=== PATIENT | female | born 1975 | race African-American/Black ===

== ENCOUNTER 2017-01-14 15:04 | Emergency (ER) ==
[2017-01-14 15:18] VITALS: BP 101/61
[2017-01-14] MEDS ORDERED: NORFLEX IM ONE (16:48)
[2017-01-14] MEDS ORDERED: DECADRON IM ONE (16:48)
--- NOTE | 2017-01-14 16:48 | PROVIDER DOCUMENTATION ---
HPI-Musculoskeletal Pain/Inj - GENERAL Chief Complaint: Back Pain Stated Complaint: BACK PAIN Time Seen by Provider: 01/14/17 16:43 Source: patient - HX OF PRESENT ILLNESS-MUSKULOSKELTAL Nature of Presenting Problem: 41 y/o AAF c/o right lower back pain, that radiates down to the right leg. States it "locks up" and she cannot move her leg. Left side has been hurting as well. Hx of renal stones. No injury today. pain has been going on for 24 hours. Tried heating pads, massage therapy, without relief. Tried taking Robaxin and Tinazidine without relief. States she has been on muscle relaxers for her fibromyalgia. Denies bowel or bladder incontinence, saddle anesthesias or paresthesias. Review of Systems - Adult - REVIEW OF SYSTEMS - ADULT Constitutional: reports: no symptoms reported. denies: chills, fever, fatique Eyes: reports: no symptoms reported. denies: decreased vision, blurred vision, double vision, eye pain Ears, Nose, Mouth & Throat: reports: no symptoms reported. denies: ear pain, nose pain, throat pain Cardiovascular: reports: no symptoms reported. denies: chest pain, palpitations Respiratory: reports: no symptoms reported. denies: cough, shortness of breath , wheezing Gastrointestinal: reports: no symptoms reported. denies: abdominal pain, diarrhea, nausea, vomiting Genitourinary: reports: no symptoms reported. denies: dysuria, discharge, frequency Musculoskeletal: reports: back pain, muscle aches. denies: bone pain, joint pain Integumentary: reports: no symptoms reported. denies: rash Neurological: reports: no symptoms reported. denies: headache/migraines Psychiatric: reports: no symptoms reported Endocrine: reports: no symptoms reported Hematologic/Lymphatic: reports: no symptoms reported Allergic/Immunologic: reports: no symptoms reported All Other Systems: Reviewed and Negative Past History - Adult - PAST MEDICAL HISTORY-ADULT Review of Records: reports: Old Records Reviewed, Nursing Assessment Review, Medications Reviewed Major Childhood Illnesses: reports: denies history Cardiovascular: reports: A-Fib, HTN Respiratory: reports: asthma Gastrointestinal: reports: GERD Obstetrical/Gynecological: reports: denies history Genitourinary: reports: kidney stones Musculoskeletal: reports: chronic pain, fibromyalgia Neurological: reports: denies history Endocrine/Immune: reports: denies history Other Conditions: reports: other (fibroid, afib, fibromyalgia, ovarain cyst's) - PRIOR SURGERIES/PROCEDURES Surgical/Procedure History: reports: hysterectomy, orthopedic (extremity) ( scope of the left knee), other (ovarian cyst removal, left) - IMMUNIZATION STATUS Childhood Immunizations: See Nurse Assessment Flu Vaccine: NUTD - FAMILY HISTORY Family History: reviewed, not pertinent - SOCIAL HISTORY Smoking: less than 1 pack/day Provider spent 3-5 mins advising pt. on dangers of tobacco.: Discussed manners to quit use, and f/u contacts for add'l counseling. Substance Use: none/never Alcohol Use Frequency: never Living Situation: family Physical Exam-Injury Related - Physical Exam-Injury Related Initial Vital Signs Reviewed: Yes General Appearance: appears well, alert, no apparent distress Eyes: PERRL/EOMI, pink conjunctivae Head, Ears, Nose, Mouth & Throat: normocephalic/atraumatic, moist mucous membranes Neck: non-tender, full range of motion, supple, normal inspection Respiratory: chest non-tender, lungs clear, normal breath sounds, no pleuratic chest pain, no respiratory distress, no accessory muscle use. negative: respiratory distress, decreased breath sounds, accessory muscle use, crackles, rales, rhonchi, stridor, wheezing Cardiovascular: normal peripheral pulses, regular rate, rhythm Peripheral Pulses: radial (R): 2+, radial (L): 2+, dorsalis-pedis (R): 2+, dorsalis-pedis (L): 2+ Back Exam: normal inspection, no vertebral tenderness, muscle spasm (right paraspinal muscle spasm) Extremity: normal gait (limping favoring the right side) Integumentary: normal color, warm/dry, blanching Neurologic: grossly normal, no motor/sensory deficits Psych/Mental Status: normal mood/affect, normal thought content, normal thought process, oriented x 3 - Glascow Coma Score Best Eye Response (Segundo): (1) no response Best Verbal Response (Segundo): (5) oriented Best Motor Response (Segundo): (6) obeys commands Progress - PLAN OF CARE/RESULTS Progress/Plan/Lab Results: Vital Signs Temp Pulse Resp BP Pulse Ox 01/14/17 15:15 98.9 F 85 16 101/61 99 iodine Allergy (Severe, Verified 01/14/17 15:18) SWELLING medroxyprogesterone acetate * [From Provera] Allergy (Severe, Verified 01/14/17 15:18) HIVES Hives and itching naproxen Allergy (Severe, Verified 01/14/17 15:18) SWELLING shellfish derived Allergy (Severe, Verified 01/14/17 15:18) SWELLING ampicillin [Ampicillin] Allergy (Intermediate, Verified 01/14/17 15:18) HIVES morphine Allergy (Intermediate, Verified 01/14/17 15:18) ITCHING Albuterol Sulfate [Proair Hfa] 8.5 gm IH PRN PRN 11/19/13 Alprazolam 1 mg PO BID 11/19/13 Sotalol [Betapace] 120 mg PO BID 11/19/13 Pregabalin [Lyrica] 150 mg PO DAILY 03/05/14 Trazodone [Desyrel] 3 each PO QHS 03/05/14 Sulindac 200 mg PO BID 05/08/15 Lisinopril/Hydrochlorothiazide [Zestoretic 20-25 mg Tablet] 1 tab PO DAILY 08/31 Omeprazole [Prilosec] 20 mg PO DAILY 08/31/15 Hydrocodone/APAP 10 mg/325 mg [Marshall-10] 1 each PO Q4H PRN PRN #60 tablet Sulfamethoxazole/Tmp D.s. [Septra Ds] 1 each PO BID #20 tablet 09/27/16 Tizanidine [Zanaflex] 4 mg PO BID 01/14/17 Orders Category Date Time Status Dexamethasone [Decadron] Med 01/14/17 16:48 Discontinued 4 mg IM NOW ONE Hydrocodone/APAP 10 mg/325 mg [Marshall-10] Med 01/14/17 16:49 Once 1 each PO NOW ONE Orphenadrine [Norflex] Med 01/14/17 16:48 Discontinued 60 mg IM NOW ONE Departure - Departure Time of Disposition Order: 16:49 DIAGNOSIS: Lumbar paraspinal muscle spasm Disposition: HOME 01 Certified Medical Emergency: Emergent Condition: Stable Additional Instructions: Follow up with your primary care physician ED Follow Up Instructions: You have been treated by a care provider in the Emergency Department. These instructions are being provided to you so you can have an understanding of how to care for yourself upon discharge. Upon discharge from the Emergency Department, you are responsible for making arrangements for follow-up care by a physician of your choice. Take all prescribed medications as directed. Return to the Emergency Department immediately for any new or worsening symptoms. You may call the Physician Referral phone number at [phone] to obtain a list of Physicians who are taking new patients. Prescriptions: Prednisone [Deltasone] 20 mg PO DIRECTED #12 tablet Cyclobenzaprine [Flexeril] 10 mg PO TID #20 tablet Acetaminophen/Diphenhydramine [Percogesic 325-12.5 mg Tablet] 1 each PO Q6-8H PRN PRN #30 tablet PRN Reason: Pain
[2017-01-14] MEDS ORDERED: NORCO-10 PO ONE (16:49)
== END 2017-01-14 18:01 | disposition home or self-care (01) ==
LOC: P.ED 15:04
DX: M62.830 Muscle spasm of back (principal); M54.5 Low back pain; M79.604 Pain in right leg; M79.1 Myalgia; I48.91 Unspecified atrial fibrillation; I10 Essential (primary) hypertension; J45.909 Unspecified asthma, uncomplicated; K21.9 Gastro-esophageal reflux disease without esophagitis; G89.29 Other chronic pain; M79.7 Fibromyalgia; F17.210 Nicotine dependence, cigarettes, uncomplicated; Z79.899 Other long term (current) drug therapy; Z71.6 Tobacco abuse counseling; Z87.442 Personal history of urinary calculi; Z87.42 Personal history of other diseases of the female genital tract
CPT/HCPCS: J1100; J2360